=== PATIENT | female | born 1930 ===

== ENCOUNTER 2016-12-24 00:31 | Emergency (ER) | payer OTHER ==
[~2016-12-24] VITALS: Ht 165.1 cm; Wt 75.0 kg
[2016-12-24 01:00] VITALS: Ht 165.1 cm; Wt 75.0 kg
[2016-12-24] MEDS ORDERED: IPRATROPIUM (NEB) 0.5 MG/2.5 ML AMP HHN ONE (01:00)
[2016-12-24] MEDS ORDERED: LEVALBUTEROL (NEB) 1.25 MG/0.5 ML AMP HHN ONE (01:00)
--- NOTE | 2016-12-24 01:53 | RADRPT ---
PROCEDURE: XR Chest. CLINICAL INDICATION: Possible sepsis TECHNIQUE: AP Portable chest. COMPARISON: 12/24/2016 FINDINGS: The cardiomediastinal silhouette is normal. The lungs are clear. The osseous structures are unrema rkable. IMPRESSION: No acute findings. RPTAT: HIKT .Romario Jacome MD, MD Date Time Electronically viewed and signed by .Romario Jacome MD, on 12/24/2016 01:52 .T/
[2016-12-24] MEDS ORDERED: LEVOFLOXACIN 750MG/D5W (PMX) 150 ML IVPB ONE (04:30)
[2016-12-24] MEDS ORDERED: LORAZEPAM 2 MG INJ ONE (05:06)
[2016-12-24] MEDS ORDERED: LORAZEPAM 2 MG INJ IV ONE (05:06)
--- NOTE | 2016-12-24 05:33 | ERD ---
ER Documentation Chief Complaint Chief Complaint bib ra from [facility] for sob and fever, breathing tx on route HPI The patient is a 86-year-old female, presenting to the ER because of shortness of breath, cough, fever 1 day according to the pc support specialist. She is unable to provide history. Past medical history: Dyslipidemia, dementia, hypertension, CAD, history of PSVT , pulmonary hypertension, chronic kidney disease Past surgical history: CABG ROS All systems reviewed and are negative except as per history of present illness. Medications Home Meds Unable to Obtain Active Prescriptions or Reported Meds Allergies Allergies: Coded Allergies: atenolol (Verified Allergy, Intermediate, 12/24/16) erythromycin base (Verified Allergy, Intermediate, 12/24/16) phenobarbital (Verified Allergy, Intermediate, 12/24/16) verapamil (Verified Allergy, Intermediate, 12/24/16) PMhx/Soc History of Surgery: No Anesthesia Reaction: No Hx Neurological Disorder: Yes (alzheimer's dementia, ) Hx Respiratory Disorders: No Hx Cardiac Disorders: No Hx Psychiatric Problems: Yes Hx Miscellaneous Medical Probl: No Hx Alcohol Use: No Hx Substance Use: No Hx Tobacco Use: No Smoking Status: Never smoker Physical Exam Vitals Vital Signs Date Time Temp Pulse Resp B/P Pulse Ox O2 Delivery O2 Flow Rate FiO2 12/24/16 04:16 87 18 123/45 100 Room Air 12/24/16 01:00 100.0 89 15 154/81 100 12/24/16 01:00 100.0 81 16 146/80 96 Room Air 12/24/16 00:50 97 22 100 21 Physical Exam Const: No acute distress. Head: Atraumatic. Eyes: Normal Conjunctiva. ENT: Normal External Ears, Nose and Mouth. Neck: Full range of motion. No meningismus. Resp: bilateral expiratory wheezes and rhonchi Cardio: Regular rate and rhythm. Abd: Soft, non distended, normal bowel sounds, non tender. Skin: No petechiae or rashes. Back: No midline or flank tenderness. Ext: No cyanosis, or edema. Neur: Awake and alert. No focal deficit Psych: Normal Mood and Affect. Result Diagram: 12/24/16 0145 12/24/16 0145 Results 24 hrs Laboratory Tests Test 12/24/16 01:35 12/24/16 01:45 12/24/16 02:10 Bedside Urine pH (LAB) 5.0 Bedside Urine Protein (LAB) 1+ Bedside Urine Glucose (UA) Negative Bedside Urine Ketones (LAB) Negative Bedside Urine Blood Trace-lysed Bedside Urine Nitrite (LAB) Negative Bedside Urine Leukocyte Esterase (L Negative White Blood Count 18.810^3/ul Red Blood Count 3.7110^6/ul Hemoglobin 10.5g/dl Hematocrit 33.7% Mean Corpuscular Volume 90.8fl Mean Corpuscular Hemoglobin 28.3pg Mean Corpuscular Hemoglobin Concent 31.2g/dl Red Cell Distribution Width 16.4% Platelet Count 35929^3/UL Mean Platelet Volume 9.4fl Neutrophils % 84.0% Lymphocytes % 7.2% Monocytes % 7.8% Eosinophils % 0.3% Basophils % 0.3% Nucleated Red Blood Cells % 0.0/100WBC Neutrophils # 15.810^3/ul Lymphocytes # 1.410^3/ul Monocytes # 1.510^3/ul Eosinophils # 0.110^3/ul Basophils # 0.110^3/ul Nucleated Red Blood Cells # 0.010^3/ul Prothrombin Time 13.1Sec Prothrombin Time Ratio 1.0 INR International Normalized Ratio 0.99 Activated Partial Thromboplast Time 29.6Sec Sodium Level 143mmol/L Potassium Level 3.6mmol/L Chloride Level 105mmol/L Carbon Dioxide Level 29mmol/L Anion Gap 13 Blood Urea Nitrogen 23mg/dl Creatinine 1.09mg/dl Glucose Level 164mg/dl Lactic Acid Level 1.5mmol/L Calcium Level 9.3mg/dl Total Bilirubin 0.5mg/dl Direct Bilirubin 0.00mg/dl Indirect Bilirubin 0.5mg/dl Aspartate Amino Transf (AST/SGOT) 23IU/L Alanine Aminotransferase (ALT/SGPT) 23IU/L Alkaline Phosphatase 84IU/L Troponin I 0.022ng/ml Total Protein 7.4g/dl Albumin 3.9g/dl Globulin 3.50g/dl Albumin/Globulin Ratio 1.11 Urine Color YELLOW Urine Clarity CLEAR Urine pH 5.0 Urine Specific [place] 1.018 Urine Ketones NEGATIVEmg/dL Urine Nitrite NEGATIVEmg/dL Urine Bilirubin NEGATIVEmg/dL Urine Urobilinogen NEGATIVEmg/dL Urine Leukocyte Esterase NEGATIVELeu/ul Urine Hemoglobin NEGATIVEmg/dL Urine Glucose NEGATIVEmg/dL Urine Total Protein NEGATIVEmg/dl Current Medications Medications (Trade) Dose Ordered Sig/Tawanna Route PRN Reason Start Time Stop Time Status Last Admin Dose Admin Levalbuterol (Xopenex Neb) 3.75 mg ONCE ONCE N 12/24/16 01:00 12/24/16 01:01 DC 12/24/16 00:50 Ipratropium [place] 1.5 mg 1.5 mg ONCE ONCE HHN 12/24/16 01:00 12/24/16 01:01 DC 12/24/16 00:49 Levofloxacin/ Dextrose (Levaquin 750 Mg/ D5W 150 ml (Pmx)) 150 ml @ 100 mls/hr ONCE ONCE IVPB 12/24/16 04:30 12/24/16 05:59 12/24/16 05:06 Lorazepam (Ativan) 2 mg STK-MED ONCE .ROUTE 12/24/16 05:06 12/24/16 05:07 DC Lorazepam (Ativan) 0.25 mg ONCE ONCE IV 12/24/16 05:06 12/24/16 05:13 DC 12/24/16 05:13 Procedures/MDM EKG: Read by emergency physician Rate/Rhythm: Normal Sinus Rhythm 98 beats/min QRS, ST, T-waves: No ST elevation, no T inversion, lateral Q wave Impression: Abnormal EKG [place] [id number] Radiology Main Line: [phone] DIAGNOSTIC IMAGING REPORT Patient: CHINYERE FENG : 1930 Age: 86 Sex: F MR #: [id number] DOS: 12/24/16 0045 Ordering MD: ZULAY CRAMER MD Location: E/R Room/Bed: PROCEDURE: XR Chest. CLINICAL INDICATION: Possible sepsis TECHNIQUE: AP Portable chest. COMPARISON: 12/24/2016 FINDINGS: The cardiomediastinal silhouette is normal. The lungs are clear. The osseous structures are unremarkable. IMPRESSION: No acute findings. RPTAT: HIKT .Romario Jacome MD, MD Date Time Electronically viewed and signed by .Romario Jacome MD, MD on 12/24/2016 01:52 .T/ CC: ZULAY CRAMER MD MEDICAL MAKING DECISION: The patient is a 86-year-old female, presenting with acute bronchitis with wheezing, acute SIRS. She was treated with Xopenex 3.75 mg and Atrovent 1.5 mg 1 hour nebulizer and Levaquin IV with good response. The differential diagnoses considered include but are not limited to asthma, COPD, pneumonia, pulmonary embolus, pleural effusion, congestive heart failure. Departure Diagnosis: Primary Impression: SIRS (systemic inflammatory response syndrome) Additional Impressions: Bronchitis Anemia Condition: Stable Comments I discussed the findings with the patient. I discussed the patient with her physician from [place] who was made aware of the lab, the treatment, the patient condition. The patient is transferred via ambulance Disclaimer: Inadvertent spelling and grammatical errors are likely due to EHR/ dictation software use and do not reflect on the overall quality of patient care. Also, please note that the electronic time recorded on this note does not necessarily reflect the actual time of the patient encounter. ZULAY CRAMER MD Dec 24, 2016 05:33
--- NOTE | 2016-12-24 05:33 | ERD ---
ER Documentation Chief Complaint Chief Complaint bib ra from [facility] for sob and fever, breathing tx on route HPI The patient is a 86-year-old female, presenting to the ER because of shortness of breath, cough, fever 1 day according to the instrumentation technician. She is unable to provide history. Past medical history: Dyslipidemia, dementia, hypertension, CAD, history of PSVT , pulmonary hypertension, chronic kidney disease Past surgical history: CABG ROS All systems reviewed and are negative except as per history of present illness. Medications Home Meds Unable to Obtain Active Prescriptions or Reported Meds Allergies Allergies: Coded Allergies: atenolol (Verified Allergy, Intermediate, 12/24/16) erythromycin base (Verified Allergy, Intermediate, 12/24/16) phenobarbital (Verified Allergy, Intermediate, 12/24/16) verapamil (Verified Allergy, Intermediate, 12/24/16) PMhx/Soc History of Surgery: No Anesthesia Reaction: No Hx Neurological Disorder: Yes (alzheimer's dementia, ) Hx Respiratory Disorders: No Hx Cardiac Disorders: No Hx Psychiatric Problems: Yes Hx Miscellaneous Medical Probl: No Hx Alcohol Use: No Hx Substance Use: No Hx Tobacco Use: No Smoking Status: Never smoker Physical Exam Vitals Vital Signs Date Time Temp Pulse Resp B/P Pulse Ox O2 Delivery O2 Flow Rate FiO2 12/24/16 04:16 87 18 123/45 100 Room Air 12/24/16 01:00 100.0 89 15 154/81 100 12/24/16 01:00 100.0 81 16 146/80 96 Room Air 12/24/16 00:50 97 22 100 21 Physical Exam Const: No acute distress. Head: Atraumatic. Eyes: Normal Conjunctiva. ENT: Normal External Ears, Nose and Mouth. Neck: Full range of motion. No meningismus. Resp: bilateral expiratory wheezes and rhonchi Cardio: Regular rate and rhythm. Abd: Soft, non distended, normal bowel sounds, non tender. Skin: No petechiae or rashes. Back: No midline or flank tenderness. Ext: No cyanosis, or edema. Neur: Awake and alert. No focal deficit Psych: Normal Mood and Affect. Result Diagram: 12/24/16 0145 12/24/16 0145 Results 24 hrs Laboratory Tests Test 12/24/16 01:35 12/24/16 01:45 12/24/16 02:10 Bedside Urine pH (LAB) 5.0 Bedside Urine Protein (LAB) 1+ Bedside Urine Glucose (UA) Negative Bedside Urine Ketones (LAB) Negative Bedside Urine Blood Trace-lysed Bedside Urine Nitrite (LAB) Negative Bedside Urine Leukocyte Esterase (L Negative White Blood Count 18.810^3/ul Red Blood Count 3.7110^6/ul Hemoglobin 10.5g/dl Hematocrit 33.7% Mean Corpuscular Volume 90.8fl Mean Corpuscular Hemoglobin 28.3pg Mean Corpuscular Hemoglobin Concent 31.2g/dl Red Cell Distribution Width 16.4% Platelet Count 96886^3/UL Mean Platelet Volume 9.4fl Neutrophils % 84.0% Lymphocytes % 7.2% Monocytes % 7.8% Eosinophils % 0.3% Basophils % 0.3% Nucleated Red Blood Cells % 0.0/100WBC Neutrophils # 15.810^3/ul Lymphocytes # 1.410^3/ul Monocytes # 1.510^3/ul Eosinophils # 0.110^3/ul Basophils # 0.110^3/ul Nucleated Red Blood Cells # 0.010^3/ul Prothrombin Time 13.1Sec Prothrombin Time Ratio 1.0 INR International Normalized Ratio 0.99 Activated Partial Thromboplast Time 29.6Sec Sodium Level 143mmol/L Potassium Level 3.6mmol/L Chloride Level 105mmol/L Carbon Dioxide Level 29mmol/L Anion Gap 13 Blood Urea Nitrogen 23mg/dl Creatinine 1.09mg/dl Glucose Level 164mg/dl Lactic Acid Level 1.5mmol/L Calcium Level 9.3mg/dl Total Bilirubin 0.5mg/dl Direct Bilirubin 0.00mg/dl Indirect Bilirubin 0.5mg/dl Aspartate Amino Transf (AST/SGOT) 23IU/L Alanine Aminotransferase (ALT/SGPT) 23IU/L Alkaline Phosphatase 84IU/L Troponin I 0.022ng/ml Total Protein 7.4g/dl Albumin 3.9g/dl Globulin 3.50g/dl Albumin/Globulin Ratio 1.11 Urine Color YELLOW Urine Clarity CLEAR Urine pH 5.0 Urine Specific [place] 1.018 Urine Ketones NEGATIVEmg/dL Urine Nitrite NEGATIVEmg/dL Urine Bilirubin NEGATIVEmg/dL Urine Urobilinogen NEGATIVEmg/dL Urine Leukocyte Esterase NEGATIVELeu/ul Urine Hemoglobin NEGATIVEmg/dL Urine Glucose NEGATIVEmg/dL Urine Total Protein NEGATIVEmg/dl Current Medications Medications (Trade) Dose Ordered Sig/Tawanna Route PRN Reason Start Time Stop Time Status Last Admin Dose Admin Levalbuterol (Xopenex Neb) 3.75 mg ONCE ONCE N 12/24/16 01:00 12/24/16 01:01 DC 12/24/16 00:50 Ipratropium [place] 1.5 mg 1.5 mg ONCE ONCE HHN 12/24/16 01:00 12/24/16 01:01 DC 12/24/16 00:49 Levofloxacin/ Dextrose (Levaquin 750 Mg/ D5W 150 ml (Pmx)) 150 ml @ 100 mls/hr ONCE ONCE IVPB 12/24/16 04:30 12/24/16 05:59 12/24/16 05:06 Lorazepam (Ativan) 2 mg STK-MED ONCE .ROUTE 12/24/16 05:06 12/24/16 05:07 DC Lorazepam (Ativan) 0.25 mg ONCE ONCE IV 12/24/16 05:06 12/24/16 05:13 DC 12/24/16 05:13 Procedures/MDM EKG: Read by emergency physician Rate/Rhythm: Normal Sinus Rhythm 98 beats/min QRS, ST, T-waves: No ST elevation, no T inversion, lateral Q wave Impression: Abnormal EKG [place] [id number] Radiology Main Line: [phone] DIAGNOSTIC IMAGING REPORT Patient: CHINYERE FENG : 1930 Age: 86 Sex: F MR #: [id number] DOS: 12/24/16 0045 Ordering MD: ZULAY CRAMER MD Location: E/R Room/Bed: PROCEDURE: XR Chest. CLINICAL INDICATION: Possible sepsis TECHNIQUE: AP Portable chest. COMPARISON: 12/24/2016 FINDINGS: The cardiomediastinal silhouette is normal. The lungs are clear. The osseous structures are unremarkable. IMPRESSION: No acute findings. RPTAT: HIKT .Romario Jacome MD, MD Date Time Electronically viewed and signed by .Romario Jacome MD, MD on 12/24/2016 01:52 .T/ CC: ZULAY CRAMER MD MEDICAL MAKING DECISION: The patient is a 86-year-old female, presenting with acute bronchitis with wheezing, acute SIRS. She was treated with Xopenex 3.75 mg and Atrovent 1.5 mg 1 hour nebulizer and Levaquin IV with good response. The differential diagnoses considered include but are not limited to asthma, COPD, pneumonia, pulmonary embolus, pleural effusion, congestive heart failure. Departure Diagnosis: Primary Impression: SIRS (systemic inflammatory response syndrome) Additional Impressions: Bronchitis Anemia Condition: Stable Comments I discussed the findings with the patient. I discussed the patient with her physician from [place] who was made aware of the lab, the treatment, the patient condition. The patient is transferred via ambulance Disclaimer: Inadvertent spelling and grammatical errors are likely due to EHR/ dictation software use and do not reflect on the overall quality of patient care. Also, please note that the electronic time recorded on this note does not necessarily reflect the actual time of the patient encounter. ZULAY CRAMER MD Dec 24, 2016 05:33
--- NOTE | 2016-12-24 05:33 | ERD ---
ER Documentation Chief Complaint Chief Complaint bib ra from [facility] for sob and fever, breathing tx on route HPI The patient is a 86-year-old female, presenting to the ER because of shortness of breath, cough, fever 1 day according to the coil builder. She is unable to provide history. Past medical history: Dyslipidemia, dementia, hypertension, CAD, history of PSVT , pulmonary hypertension, chronic kidney disease Past surgical history: CABG ROS All systems reviewed and are negative except as per history of present illness. Medications Home Meds Unable to Obtain Active Prescriptions or Reported Meds Allergies Allergies: Coded Allergies: atenolol (Verified Allergy, Intermediate, 12/24/16) erythromycin base (Verified Allergy, Intermediate, 12/24/16) phenobarbital (Verified Allergy, Intermediate, 12/24/16) verapamil (Verified Allergy, Intermediate, 12/24/16) PMhx/Soc History of Surgery: No Anesthesia Reaction: No Hx Neurological Disorder: Yes (alzheimer's dementia, ) Hx Respiratory Disorders: No Hx Cardiac Disorders: No Hx Psychiatric Problems: Yes Hx Miscellaneous Medical Probl: No Hx Alcohol Use: No Hx Substance Use: No Hx Tobacco Use: No Smoking Status: Never smoker Physical Exam Vitals Vital Signs Date Time Temp Pulse Resp B/P Pulse Ox O2 Delivery O2 Flow Rate FiO2 12/24/16 04:16 87 18 123/45 100 Room Air 12/24/16 01:00 100.0 89 15 154/81 100 12/24/16 01:00 100.0 81 16 146/80 96 Room Air 12/24/16 00:50 97 22 100 21 Physical Exam Const: No acute distress. Head: Atraumatic. Eyes: Normal Conjunctiva. ENT: Normal External Ears, Nose and Mouth. Neck: Full range of motion. No meningismus. Resp: bilateral expiratory wheezes and rhonchi Cardio: Regular rate and rhythm. Abd: Soft, non distended, normal bowel sounds, non tender. Skin: No petechiae or rashes. Back: No midline or flank tenderness. Ext: No cyanosis, or edema. Neur: Awake and alert. No focal deficit Psych: Normal Mood and Affect. Result Diagram: 12/24/16 0145 12/24/16 0145 Results 24 hrs Laboratory Tests Test 12/24/16 01:35 12/24/16 01:45 12/24/16 02:10 Bedside Urine pH (LAB) 5.0 Bedside Urine Protein (LAB) 1+ Bedside Urine Glucose (UA) Negative Bedside Urine Ketones (LAB) Negative Bedside Urine Blood Trace-lysed Bedside Urine Nitrite (LAB) Negative Bedside Urine Leukocyte Esterase (L Negative White Blood Count 18.810^3/ul Red Blood Count 3.7110^6/ul Hemoglobin 10.5g/dl Hematocrit 33.7% Mean Corpuscular Volume 90.8fl Mean Corpuscular Hemoglobin 28.3pg Mean Corpuscular Hemoglobin Concent 31.2g/dl Red Cell Distribution Width 16.4% Platelet Count 86067^3/UL Mean Platelet Volume 9.4fl Neutrophils % 84.0% Lymphocytes % 7.2% Monocytes % 7.8% Eosinophils % 0.3% Basophils % 0.3% Nucleated Red Blood Cells % 0.0/100WBC Neutrophils # 15.810^3/ul Lymphocytes # 1.410^3/ul Monocytes # 1.510^3/ul Eosinophils # 0.110^3/ul Basophils # 0.110^3/ul Nucleated Red Blood Cells # 0.010^3/ul Prothrombin Time 13.1Sec Prothrombin Time Ratio 1.0 INR International Normalized Ratio 0.99 Activated Partial Thromboplast Time 29.6Sec Sodium Level 143mmol/L Potassium Level 3.6mmol/L Chloride Level 105mmol/L Carbon Dioxide Level 29mmol/L Anion Gap 13 Blood Urea Nitrogen 23mg/dl Creatinine 1.09mg/dl Glucose Level 164mg/dl Lactic Acid Level 1.5mmol/L Calcium Level 9.3mg/dl Total Bilirubin 0.5mg/dl Direct Bilirubin 0.00mg/dl Indirect Bilirubin 0.5mg/dl Aspartate Amino Transf (AST/SGOT) 23IU/L Alanine Aminotransferase (ALT/SGPT) 23IU/L Alkaline Phosphatase 84IU/L Troponin I 0.022ng/ml Total Protein 7.4g/dl Albumin 3.9g/dl Globulin 3.50g/dl Albumin/Globulin Ratio 1.11 Urine Color YELLOW Urine Clarity CLEAR Urine pH 5.0 Urine Specific [place] 1.018 Urine Ketones NEGATIVEmg/dL Urine Nitrite NEGATIVEmg/dL Urine Bilirubin NEGATIVEmg/dL Urine Urobilinogen NEGATIVEmg/dL Urine Leukocyte Esterase NEGATIVELeu/ul Urine Hemoglobin NEGATIVEmg/dL Urine Glucose NEGATIVEmg/dL Urine Total Protein NEGATIVEmg/dl Current Medications Medications (Trade) Dose Ordered Sig/Tawanna Route PRN Reason Start Time Stop Time Status Last Admin Dose Admin Levalbuterol (Xopenex Neb) 3.75 mg ONCE ONCE N 12/24/16 01:00 12/24/16 01:01 DC 12/24/16 00:50 Ipratropium [place] 1.5 mg 1.5 mg ONCE ONCE HHN 12/24/16 01:00 12/24/16 01:01 DC 12/24/16 00:49 Levofloxacin/ Dextrose (Levaquin 750 Mg/ D5W 150 ml (Pmx)) 150 ml @ 100 mls/hr ONCE ONCE IVPB 12/24/16 04:30 12/24/16 05:59 12/24/16 05:06 Lorazepam (Ativan) 2 mg STK-MED ONCE .ROUTE 12/24/16 05:06 12/24/16 05:07 DC Lorazepam (Ativan) 0.25 mg ONCE ONCE IV 12/24/16 05:06 12/24/16 05:13 DC 12/24/16 05:13 Procedures/MDM EKG: Read by emergency physician Rate/Rhythm: Normal Sinus Rhythm 98 beats/min QRS, ST, T-waves: No ST elevation, no T inversion, lateral Q wave Impression: Abnormal EKG [place] [id number] Radiology Main Line: [phone] DIAGNOSTIC IMAGING REPORT Patient: CHINYERE FENG : 1930 Age: 86 Sex: F MR #: [id number] DOS: 12/24/16 0045 Ordering MD: ZULAY CRAMER MD Location: E/R Room/Bed: PROCEDURE: XR Chest. CLINICAL INDICATION: Possible sepsis TECHNIQUE: AP Portable chest. COMPARISON: 12/24/2016 FINDINGS: The cardiomediastinal silhouette is normal. The lungs are clear. The osseous structures are unremarkable. IMPRESSION: No acute findings. RPTAT: HIKT .Romario Jacome MD, MD Date Time Electronically viewed and signed by .Romario Jacome MD, MD on 12/24/2016 01:52 .T/ CC: ZULAY CRAMER MD MEDICAL MAKING DECISION: The patient is a 86-year-old female, presenting with acute bronchitis with wheezing, acute SIRS. She was treated with Xopenex 3.75 mg and Atrovent 1.5 mg 1 hour nebulizer and Levaquin IV with good response. The differential diagnoses considered include but are not limited to asthma, COPD, pneumonia, pulmonary embolus, pleural effusion, congestive heart failure. Departure Diagnosis: Primary Impression: SIRS (systemic inflammatory response syndrome) Additional Impressions: Bronchitis Anemia Condition: Stable Comments I discussed the findings with the patient. I discussed the patient with her physician from [place] who was made aware of the lab, the treatment, the patient condition. The patient is transferred via ambulance Disclaimer: Inadvertent spelling and grammatical errors are likely due to EHR/ dictation software use and do not reflect on the overall quality of patient care. Also, please note that the electronic time recorded on this note does not necessarily reflect the actual time of the patient encounter. ZULAY CRAMER MD Dec 24, 2016 05:33
[2016-12-24 05:42] VITALS: BP 115/103; PULSE 92; RESP 21; TEMP 98.7
[2016-12-24] MEDS ORDERED: LORAZEPAM 2 MG INJ IM ONE (05:50)
== END 2016-12-24 06:50 | disposition short-term general hospital (02) ==
LOC: E/R 00:31
DX: J20.9 Acute bronchitis, unspecified (principal); I12.9 Hypertensive chronic kidney disease with stage 1 through stage 4 chronic kidney disease, or unspecified chronic kidney disease; N18.9 Chronic kidney disease, unspecified; I25.810 Atherosclerosis of coronary artery bypass graft(s) without angina pectoris; G30.9 Alzheimer's disease, unspecified; D64.9 Anemia, unspecified; R65.10 Systemic inflammatory response syndrome (SIRS) of non-infectious origin without acute organ dysfunction
CPT/HCPCS: 36415; 71010; 80053; 81003; 83605; 84484; 85025; 85610; 85730; 87040; 87086; 93005; 94644; 96374; 96375; 99285; J1956; J2060